=== PATIENT | male | born 1955 | race Caucasian/White ===

== ENCOUNTER 2022-12-20 13:36 | Outpatient (CLI) | payer MEDICARE, SELFPAY ==
--- NOTE | 2022-12-20 13:59 | USCV_ITS ---
Coy Marc Age: 67 Gender: M : 1955 Exam Date: 12/20/2022 14:10 Ordering Phys: Salomón Restrepo MD Technologist: Jesus Garza Exam Location: [facility] – [place]_ Indication: Leg Swelling RIGHT LEFT Brachial 142.00 mmHg Brachial 135.00 mmHg Pressure (mmHg) Waveform Pressure (mmHg) Waveform 159.00 [employer] 156.00 115.00 DPA 140.00 1.12 Ankle/Brachial Index 1.10 133.00 Pre-Exercise Toe Pressure 75.00 0.94 Pre-Exercise Toe/Brachial Index 0.53 FINDINGS Resting JUAN of 1.12 on the right and 1.1 on the left Resting TBI of 0.94 on the right and 0.53 on the left CONCLUSIONS 1. Normal resting JUAN and TBI on the right side 2. Normal resting JUAN with a slightly diminished resting TBI on the left side, suggesting mild peripheral artery disease, possibly involving the distal vessels. Dr Sesar Toledo MD [facility] (Electronically Signed) Final Date: 21 January 2023 14:30 S
== END 2022-12-20 13:37 | disposition home or self-care (01) ==
LOC: RAD 13:44
PROVIDERS: PCP Family Medicine; Visit Provider Family Medicine
DX: I73.89 Other specified peripheral vascular diseases (principal)
CPT/HCPCS: 93922

== ENCOUNTER → 2023-05-21 10:31 | Outpatient (BNVA) | payer MEDICARE, SELFPAY | PROVIDERS: PCP Family Medicine; Referring Provider Family Medicine; Visit Provider Psychiatry & Neurology Neurology | DX: I63.9 Cerebral infarction, unspecified (principal); R60.9 Edema, unspecified; R68.89 Other general symptoms and signs | CPT/HCPCS: 99203 ==

== ENCOUNTER 2023-07-03 15:23 | Outpatient (CLI) | payer MEDICARE, SELFPAY ==
--- NOTE | 2023-07-03 16:00 | MR_ITS ---
WS: [id number] MRI HEAD WITHOUT CONTRAST TECHNIQUE: Sagittal T1, T2 axial, T2 axial FLAIR, axial and coronal T1 images, axial susceptibility w eighted imaging, axial diffusion weighted images, and coronal T2 images were obtained. CLINICAL INFORMATION: I63.9 - Cerebral infarction, unspecified COMPARISON: No prior imaging studies available for comparison. No imaging studies available from [facility] as requested FINDINGS: No evidence of restricted diffusion to suggest acute ischemia. Ventricular system and basal cisterns are patent. Moderate small vessel changes. Moderate parenchymal volume loss. Normal posterior fossa. Normal vascular flow voids at the skull base. No extra-axial fluid collections. No evidence of mass o r mass effect. Paranasal sinuses and mastoid air cells are well aerated. Normal posterior nasopharynx and parapharyn geal fat. Tiny chronic lacunar infarcts involving the RIGHT greater than LEFT basal ganglia. Tiny foc us of hemosiderin about the RIGHT posterior lateral ventricle. Suspected venous angioma in the LEFT c entrum semiovale. Normal optic chiasm and pituitary infundibulum. Mild to moderate symmetric atrophy temporal lobes and hippocampal formations. IMPRESSION: 1. No evidence of restricted diffusion to suggest acute ischemia. 2. Moderate small vessel changes with moderate parenchymal volume loss. 3. Tiny chronic lacunar infarcts in the RIGHT greater than LEFT basal ganglia. 4. Suspected venous angioma in the LEFT centrum semiovale. 5. Tiny focus of hemosiderin along the RIGHT posterior lateral ventricle. 6. Mild to moderate symmetric atrophy temporal lobes and hippocampal formations.
== END 2023-07-03 15:24 | disposition home or self-care (01) ==
LOC: RAD 15:26
PROVIDERS: PCP Family Medicine; Visit Provider Psychiatry & Neurology Neurology
DX: I63.9 Cerebral infarction, unspecified (principal)
CPT/HCPCS: 70551

== ENCOUNTER → 2023-08-08 11:45 | Outpatient (BNVA) | payer MEDICARE, SELFPAY | PROVIDERS: PCP Family Medicine; Visit Provider Psychiatry & Neurology Neurology | DX: I69.398 Other sequelae of cerebral infarction (principal); I10 Essential (primary) hypertension | CPT/HCPCS: 99212 ==

== ENCOUNTER → 2023-10-24 14:00 | Outpatient (BNVA) | payer MEDICARE, SELFPAY | PROVIDERS: PCP Family Medicine; Referring Provider Family Medicine; Visit Provider Dermatology | DX: L72.0 Epidermal cyst (principal); L82.1 Other seborrheic keratosis; L81.4 Other melanin hyperpigmentation; L57.8 Other skin changes due to chronic exposure to nonionizing radiation; L57.0 Actinic keratosis; L70.8 Other acne; D22.39 Melanocytic nevi of other parts of face | CPT/HCPCS: 17000; 99203 ==

== ENCOUNTER → 2024-03-20 10:19 | Outpatient (BNVA) | payer MEDICARE, SELFPAY | PROVIDERS: PCP Family Medicine; Referring Provider Family Medicine; Visit Provider Internal Medicine | DX: E78.2 Mixed hyperlipidemia; E11.65 Type 2 diabetes mellitus with hyperglycemia; Z79.4 Long term (current) use of insulin; Z79.84 Long term (current) use of oral hypoglycemic drugs; Z86.73 Personal history of transient ischemic attack (TIA), and cerebral infarction without residual deficits | CPT/HCPCS: 99204 ==

== ENCOUNTER → 2024-04-03 07:41 | Outpatient (BNVA) | payer MEDICARE, SELFPAY | PROVIDERS: PCP Family Medicine; Visit Provider Internal Medicine | DX: E11.9 Type 2 diabetes mellitus without complications (principal); E78.2 Mixed hyperlipidemia; Z79.4 Long term (current) use of insulin; Z79.84 Long term (current) use of oral hypoglycemic drugs | CPT/HCPCS: 99214 ==

== ENCOUNTER → 2024-04-15 13:42 | Outpatient (BNVA) | payer MEDICARE, SELFPAY | PROVIDERS: PCP Family Medicine; Referring Provider Family Medicine; Visit Provider Psychiatry & Neurology Neurology | DX: I63.9 Cerebral infarction, unspecified (principal); R68.89 Other general symptoms and signs; E78.2 Mixed hyperlipidemia; G40.109 Localization-related (focal) (partial) symptomatic epilepsy and epileptic syndromes with simple partial seizures, not intractable, without status epilepticus; G20.A1 Parkinson's disease without dyskinesia, without mention of fluctuations | CPT/HCPCS: 99212; 99213 ==

== ENCOUNTER 2024-05-15 09:42 | Outpatient (CLI) | payer MEDICARE, SELFPAY ==
--- NOTE | 2024-05-15 11:00 | MR_ITS ---
WS: [id number] MRI HEAD WITH CONTRAST TECHNIQUE: Sagittal T1, T2 axial, T2 axial FLAIR, axial susceptibility weighted imaging, axial diffus ion weighted images, and coronal T2 images were obtained. Pre and post-T1 axial and post T1 coronal i mages. ADC and FSPGR images. CLINICAL INFORMATION: I63.9 - Cerebral infarction, unspecified COMPARISON: MRI 07/03/2023 FINDINGS: No evidence of restricted diffusion to suggest acute ischemia. Ventricular system and basal cisterns are patent. Moderate small vessel changes with moderate parenchymal volume loss. This is stable in ap pearance compared to previous. Chronic lacunar infarcts in the RIGHT greater than LEFT basal ganglia. Chronic lacunar infarct in the RIGHT thalamus is stable compared to previous. Lacunar infarcts appea r unchanged. Normal posterior fossa. Normal vascular flow voids at the skull base. No extra-axial fluid collection s. Paranasal sinuses are well aerated. Mastoid air cells are well aerated. Enhancing incidental benign venous angioma in the LEFT periventricular white matter. Tiny stable focu s of hemosiderin along the RIGHT posterior lateral ventricle. Normal optic chiasm and pituitary infun dibulum. Mild to moderate symmetric atrophy temporal lobes and hippocampal formations. Otherwise no abnormal intracranial enhancement. Normal dural venous sinuses. Tiny hypoenhancing lesio n in the pituitary likely a tiny microadenoma or pars intermedia cyst. This measures approximately 3 mm. Recommend correlation with pituitary function studies. MR/MR head wo/w con [id number] IMPRESSION: 1. No evidence of restricted diffusion to suggest acute ischemia. 2. Moderate small vessel changes with moderate parenchymal volume loss. 3. Stable chronic lacunar infarcts in the basal ganglia and RIGHT thalamus. 4. Stable enhancing venous angioma in the LEFT periventricular white matter. 5. Tiny punctate focus of hemosiderin along the RIGHT posterior lateral ventri costa unchanged. 6. Tiny hypoenhancing focus in the pituitary measuring 3 mm likely a tiny micr oadenoma or pars intermedia cyst. Recommend correlation with pituitary function studies.
[2024-05-15] MEDS: gadobenate dimeglumine 20 mL vial IV (11:04)
[2024-05-16 11:20] LABS: Levetiracetam Immunoassy 23.3 mcg/mL (6.0-46.0)
== END 2024-05-15 09:43 | disposition home or self-care (01) ==
PROVIDERS: PCP Family Medicine; Visit Provider Psychiatry & Neurology Neurology
DX: I63.81 Other cerebral infarction due to occlusion or stenosis of small artery (principal); E78.2 Mixed hyperlipidemia; R68.89 Other general symptoms and signs; G31.89 Other specified degenerative diseases of nervous system; D18.02 Hemangioma of intracranial structures; R93.0 Abnormal findings on diagnostic imaging of skull and head, not elsewhere classified
CPT/HCPCS: 36415; 70553; 80177; 80184; A9577

== ENCOUNTER → 2024-05-25 11:11 | Outpatient (BNVA) | payer MEDICARE, SELFPAY | PROVIDERS: PCP Family Medicine; Visit Provider Psychiatry & Neurology Neurology | DX: R78.89 Finding of other specified substances, not normally found in blood (principal); G40.109 Localization-related (focal) (partial) symptomatic epilepsy and epileptic syndromes with simple partial seizures, not intractable, without status epilepticus | CPT/HCPCS: 80177; 80184 ==

== ENCOUNTER → 2024-06-11 12:38 | Outpatient (BNVA) | payer MEDICARE, SELFPAY | PROVIDERS: PCP Family Medicine; Referring Provider Psychiatry & Neurology Neurology; Visit Provider Psychiatry & Neurology Neurology | DX: I63.9 Cerebral infarction, unspecified (principal); G40.109 Localization-related (focal) (partial) symptomatic epilepsy and epileptic syndromes with simple partial seizures, not intractable, without status epilepticus; R68.89 Other general symptoms and signs; E78.2 Mixed hyperlipidemia | CPT/HCPCS: 95816; 95819 ==

== ENCOUNTER → 2024-07-08 12:48 | Outpatient (BNVA) | payer MEDICARE, SELFPAY | PROVIDERS: PCP Family Medicine; Visit Provider Psychiatry & Neurology Neurology | DX: I63.9 Cerebral infarction, unspecified (principal); R68.89 Other general symptoms and signs; E78.2 Mixed hyperlipidemia; G40.109 Localization-related (focal) (partial) symptomatic epilepsy and epileptic syndromes with simple partial seizures, not intractable, without status epilepticus; G20.A1 Parkinson's disease without dyskinesia, without mention of fluctuations; E11.9 Type 2 diabetes mellitus without complications; I10 Essential (primary) hypertension | CPT/HCPCS: 36415; 80177; 80184; 99212; 99214 ==

== ENCOUNTER → 2024-07-15 09:01 | Outpatient (BNVA) | payer MEDICARE, SELFPAY | PROVIDERS: PCP Family Medicine; Visit Provider Internal Medicine | DX: E11.9 Type 2 diabetes mellitus without complications (principal); E78.2 Mixed hyperlipidemia; R39.9 Unspecified symptoms and signs involving the genitourinary system; D35.2 Benign neoplasm of pituitary gland | CPT/HCPCS: 36415; 80053; 80061; 81001; 82533; 83721; 84146; 84305; 84439; 84443; 99214 ==

== ENCOUNTER → 2024-10-07 09:02 | Outpatient (BNVA) | payer MEDICARE, SELFPAY | PROVIDERS: PCP Family Medicine; Visit Provider Internal Medicine | DX: E11.9 Type 2 diabetes mellitus without complications (principal); E78.2 Mixed hyperlipidemia | CPT/HCPCS: 80053; 80061; 82043; 83036 ==

== ENCOUNTER → 2024-10-13 08:13 | Outpatient (BNVA) | payer MEDICARE, SELFPAY | PROVIDERS: PCP Family Medicine; Visit Provider Internal Medicine | DX: E11.9 Type 2 diabetes mellitus without complications (principal); E78.2 Mixed hyperlipidemia; R39.9 Unspecified symptoms and signs involving the genitourinary system; D35.2 Benign neoplasm of pituitary gland | CPT/HCPCS: 99214 ==

== ENCOUNTER → 2024-10-23 10:30 | Outpatient (BNVA) | payer MEDICARE, SELFPAY | PROVIDERS: PCP Family Medicine; Visit Provider Nurse Practitioner Family | DX: L82.1 Other seborrheic keratosis (principal); L81.4 Other melanin hyperpigmentation; L57.8 Other skin changes due to chronic exposure to nonionizing radiation; D22.39 Melanocytic nevi of other parts of face; L21.8 Other seborrheic dermatitis; L57.0 Actinic keratosis | CPT/HCPCS: 17000; 99213 ==

== ENCOUNTER → 2025-01-04 15:00 | Outpatient (BNVA) | payer MEDICARE, SELFPAY | PROVIDERS: PCP Family Medicine; Visit Provider Psychiatry & Neurology Neurology | DX: G20.A1 Parkinson's disease without dyskinesia, without mention of fluctuations (principal); I63.9 Cerebral infarction, unspecified; R68.89 Other general symptoms and signs; E78.2 Mixed hyperlipidemia; G40.109 Localization-related (focal) (partial) symptomatic epilepsy and epileptic syndromes with simple partial seizures, not intractable, without status epilepticus | CPT/HCPCS: 99212 ==